=== PATIENT | female | born 2000 | race Caucasian/White ===

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

== ENCOUNTER 2019-01-01 16:16 | Emergency (ER) | payer OTHER ==
[~2019-01-01] VITALS: Ht 149.9 cm; Wt 39.3 kg
[~2019-01-01 16:16] MED LIST changes: -ALBU8.5H3 INH; +ALBU8.5H8 INH; +AZIT250T PO; -AZIT250T94 PO; +CEPH-443 PO
[2019-01-01 16:22] VITALS: BP 131/75; PULSE 76; RESP 18; Ht 149.9 cm; Wt 39.3 kg
[2019-01-01] MEDS ORDERED: DOXY100T20 PO (17:01)
--- NOTE | 2019-01-01 17:07 | ERD ---
ER Documentation Chief Complaint Chief Complaint REDNESS AND SWELLING ON RT LEG X 2 WEEKS HPI 18-year-old female presents complaint of redness and swelling on the left leg for the past 2 weeks. States that she thinks she got a bug bite and then the redness expanded. Denies any current pain or swelling but the states redness is still there. Denies any treatments. Denies any systemic symptoms including achiness chills, fever, chest pain, shortness of breath, cough, hemoptysis, recent travel, hikes. ROS All systems reviewed and are negative except as per history of present illness. Medications Home Meds Active Scripts Doxycycline Hyclate* (Doxycycline Hyclate*) 100 Mg Tablet.dr, 100 MG PO BID for rash for 10 Days, TAB Prov:GABO HELTON 01/01/19 Cephalexin* (Keflex*) 500 Mg Capsule, 500 MG PO BID for 7 Days, CAP Prov:LADARIUS MAYERS PA-C 01/30/17 Dextromethorphan Hb-Promethazine Hcl (Promethazine DM Syrup) 473 Ml Syrup, 5 ML PO Q6H PRN for COUGH, #4 OZ Prov:MIKEY RANGEL MD 09/08/16 Albuterol Sulfate* (Albuterol Sulfate* Neb) 0.083%-3 Ml Neb, 2.5 MG NEB Q4 PRN for SHORTNESS OF BREATH, #30 EA Prov:MIKEY RANGEL MD 09/08/16 Albuterol Sulfate* (Ventolin HFA*) 18 Gm Hfa.aer.ad, 2 PUFF INHALATION Q4H, #1 INHALER Prov:MIKEY RANGEL MD 09/08/16 Azithromycin* (Zithromax*) 250 Mg Tablet, 250 MG PO .ZPACK DIRECTED, #6 TAB TAKE 500 MG (2 TABS) THE FIRST DAY THEN 250 MG (1 TAB) DAYS 2-5 Prov:MIKEY RANGEL MD 09/08/16 Prednisone* (Prednisone*) 20 Mg Tab, 40 MG PO DAILY for 4 Days, TAB Prov:MIKEY RANGEL MD 09/08/16 Albuterol Sulfate* (Proair HFA*) 8.5 Gm Hfa.aer.ad, 2 PUFF INH Q4, #1 INHALER Prov:SAIMA HINES C 12/30/15 Polymyxin B Sulfate-TMP* (Polymyxin B-TMP Eye Drops*) 10 Ml Drops, 1 DROP LEFT EYE QID for 7 Days, EA Prov:CAMILLE ALMANZAR PA-C 12/23/15 Reported Medications Vit-Iron Fumarate-FA ( Vitamin Tablet) 1 Each Tablet, 1 TAB PO DAILY, TAB 12/13/14 Salmeterol Xinaf-Fluticasone* (Advair HFA*) 45/212 Aerosol Inhaler, 2 INH IH BID, INH 12/13/14 Albuterol Sulfate* (Albuterol Sulfate* HFA) 8.5 Gm Hfa.aer.ad, 2 PUFF IH Q4H PRN for WHEEZING AND SOB, EA 12/13/14 Allergies Allergies: Coded Allergies: No Known Allergies (Unverified Allergy, Unknown, 12/23/15) PMhx/Soc History of Surgery: No Anesthesia Reaction: No Hx Neurological Disorder: No Hx Respiratory Disorders: Yes (asthma) Hx Cardiac Disorders: No Hx Psychiatric Problems: No Hx Miscellaneous Medical Probl: No Hx Alcohol Use: No Hx Substance Use: No Hx Tobacco Use: No FmHx Family History: No diabetes, No coronary disease, No other Physical Exam Vitals Vital Signs Date Temp Pulse Resp B/P (MAP) Pulse Ox O2 O2 Flow FiO2 Time Delivery Rate 01/01/19 98.1 76 18 131/75 100 16:22 (93) Physical Exam Const: No acute distress Head: Atraumatic Eyes: Normal Conjunctiva ENT: Normal External Ears, Nose and Mouth. Neck: Full range of motion. No meningismus. Resp: Clear to auscultation bilaterally Cardio: Regular rate and rhythm, no murmurs Abd: Soft, non tender, non distended. Normal bowel sounds Skin: 2 target lesions noted to the right calf. There is no edema or ecchymosis noted. Distal pulses are intact. There is no warmth or tenderness to palpation. Back: No midline or flank tenderness Ext: No cyanosis, or edema Neur: Awake and alert Psych: Normal Mood and Affect Procedures/MDM MDM: Patient will be treated with doxycycline to cover parasitic infection such as Lyme disease which can present with target lesions. Low suspicion for Kawasaki disease, scarlet fever, necrotizing fasciitis, sepsis, gangrene, Bon-Kalia syndrome, toxic epidural necrolysis, abscess, cellulitis, anaphylaxis, allergic reaction. Patient discharged with strict ER precautions. Patient advised to follow up with PMD. All questions answered at discharge. Departure Diagnosis: Primary Impression: Rash Condition: Stable Patient Instructions: Self-Care for Skin Rashes Additional Instructions: FOLLOW UP WITH YOUR PRIMARY CARE PHYSICIAN TOMORROW.Return to this facility if you are not improving as expected. GABO HELTON Jan 01, 2019 17:07
== END 2019-01-01 17:31 | disposition home or self-care (01) ==
LOC: FTE 16:16
DX: L98.9 Disorder of the skin and subcutaneous tissue, unspecified (principal); J45.909 Unspecified asthma, uncomplicated
CPT/HCPCS: 81025; Z7502; 99283

== ENCOUNTER 2019-03-12 21:19 | Emergency (ER) | payer OTHER ==
[~2019-03-12] VITALS: Ht 149.9 cm; Wt 38.3 kg
[~2019-03-12 21:19] MED LIST changes: +BENZ-6 PO; +DOXY100T20 PO
[2019-03-12 21:23] VITALS: Ht 149.9 cm; Wt 38.3 kg
[2019-03-12] MEDS ORDERED: IPRATROPIUM (NEB) 0.5 MG/2.5 ML AMP NEB STA (22:09)
[2019-03-12] MEDS ORDERED: ALBUTEROL 0.083% (NEB) 2.5 MG/3 ML AMP NEB STA (22:09)
[2019-03-12] MEDS ORDERED: predniSONE 20 MG TAB PO ONE (22:30)
--- NOTE | 2019-03-12 23:13 | ERD ---
ER Documentation Chief Complaint Chief Complaint COUGH X4DAYS; HX OF ASTHMA HPI Patient is a 18-year-old female, past medical history of asthma who presents the ER for concerns of dry cough x4 days. Patient states she is been using her inhaler with minimal alleviation of symptoms. Patient also reports shortness of breath. She reports coughing spells. Patient has no fevers or chills. Patient denies any chest pain. Patient denies any nausea, vomiting, bowel pain or diarrhea. Patient denies previous intubation. No recent travel. No sick contacts. ROS All systems reviewed and are negative except as per history of present illness. Medications Home Meds Active Scripts Albuterol Sulfate* (Proair HFA*) 8.5 Gm Hfa.aer.ad, 2 PUFF INH Q6, #1 INHALER Prov:SHAHBAZ GRAHAM PA-C 03/12/19 Benzonatate* (Tessalon Perle*) 100 Mg Capsule, 100 MG PO Q8H PRN for COUGH, #30 CAP Prov:SHAHBAZ GRAHAM PA-C 03/12/19 Prednisone* (Prednisone*) 20 Mg Tab, 40 MG PO DAILY for 4 Days, TAB Prov:SHAHBAZ GRAHAM PA-C 03/12/19 Doxycycline Hyclate* (Doxycycline Hyclate*) 100 Mg Tablet.dr, 100 MG PO BID for rash for 10 Days, TAB Prov:GABO HELTON 01/01/19 Cephalexin* (Keflex*) 500 Mg Capsule, 500 MG PO BID for 7 Days, CAP Prov:LADARIUS MAYERS PA-C 01/30/17 Dextromethorphan Hb-Promethazine Hcl (Promethazine DM Syrup) 473 Ml Syrup, 5 ML PO Q6H PRN for COUGH, #4 OZ Prov:MIKEY RANGEL MD 09/08/16 Albuterol Sulfate* (Albuterol Sulfate* Neb) 0.083%-3 Ml Neb, 2.5 MG NEB Q4 PRN for SHORTNESS OF BREATH, #30 EA Prov:MIKEY RANGEL MD 09/08/16 Albuterol Sulfate* (Ventolin HFA*) 18 Gm Hfa.aer.ad, 2 PUFF INHALATION Q4H, #1 INHALER Prov:MIKEY RANGEL MD 09/08/16 Azithromycin* (Zithromax*) 250 Mg Tablet, 250 MG PO .ZPACK DIRECTED, #6 TAB TAKE 500 MG (2 TABS) THE FIRST DAY THEN 250 MG (1 TAB) DAYS 2-5 Prov:MIKEY RANGEL MD 09/08/16 Prednisone* (Prednisone*) 20 Mg Tab, 40 MG PO DAILY for 4 Days, TAB Prov:MIKEY RANGEL MD 09/08/16 Albuterol Sulfate* (Proair HFA*) 8.5 Gm Hfa.aer.ad, 2 PUFF INH Q4, #1 INHALER Prov:SAIMA HINES 12/30/15 Polymyxin B Sulfate-TMP* (Polymyxin B-TMP Eye Drops*) 10 Ml Drops, 1 DROP LEFT EYE QID for 7 Days, EA Prov:CAMILLE ALMANZAR PA-C 12/23/15 Reported Medications Vit-Iron Fumarate-FA ( Vitamin Tablet) 1 Each Tablet, 1 TAB PO DAILY, TAB 12/13/14 Salmeterol Xinaf-Fluticasone* (Advair HFA*) 45/212 Aerosol Inhaler, 2 INH IH BID, INH 12/13/14 Albuterol Sulfate* (Albuterol Sulfate* HFA) 8.5 Gm Hfa.aer.ad, 2 PUFF IH Q4H PRN for WHEEZING AND SOB, EA 12/13/14 Discontinued Scripts Benzonatate* (Tessalon Perle*) 100 Mg Capsule, 100 MG PO Q8H PRN for COUGH, #30 CAP Prov:SHAHBAZ GRAHAM PA-C 03/12/19 Allergies Allergies: Coded Allergies: No Known Allergies (Unverified Allergy, Unknown, 12/23/15) PMhx/Soc Medical and Surgical Hx: pt denies Surgical Hx History of Surgery: No Anesthesia Reaction: No Hx Neurological Disorder: No Hx Respiratory Disorders: Yes (asthma) Hx Cardiac Disorders: No Hx Psychiatric Problems: No Hx Miscellaneous Medical Probl: No Hx Alcohol Use: No Hx Substance Use: No Hx Tobacco Use: No Smoking Status: Unknown if ever smoked FmHx Family History: No diabetes Physical Exam Vitals Vital Signs Date Temp Pulse Resp B/P (MAP) Pulse Ox O2 O2 Flow FiO2 Time Delivery Rate 03/12/19 91 21 98 21 22:25 03/12/19 98.2 83 19 121/82 100 21:23 (95) Physical Exam GENERAL: Well-developed, well-nourished female. Appears in no acute distress. HEAD: Normocephalic, atraumatic. EYES: Pupils are equally reactive bilaterally. EOMs grossly intact. No conjunctival erythema. ENT: Moist mucous membranes. No uvula deviation. No kissing tonsils. NECK: Supple. No meningismus. Normal range of motion of the neck. LUNG: Tight breath sounds. Faint expiratory wheezing noted. No abdominal retractions, nasal flaring, no tripoding. HEART: Regular rate and rhythm. No murmurs, rubs or gallops. EXTREMITIES: Equal pulses bilaterally. No peripheral clubbing, cyanosis or edema. No unilateral leg swelling. NEUROLOGIC: Alert and oriented. Moving all four extremities without any difficulty. Normal speech. Steady gait. SKIN: Normal color. Warm and dry. No rashes or lesions. Results 24 hrs Current Medications Medications Dose Sig/Marcos Start Time Status Last (Trade) Ordered Route PRN Stop Time Admin Dose Reason Admin Albuterol 5 mg ONCE STAT 03/12/19 DC 03/12/19 (Proventil NEB 22:09 22:25 0.083% (Neb)) 03/12/19 22:10 Ipratropium 0.5 mg ONCE STAT 03/12/19 DC 03/12/19 [place] NEB 22:09 22:25 (Atrovent 03/12/19 22:10 0.02% (Neb)) Prednisone 40 mg ONCE ONCE 03/12/19 DC 03/12/19 (Prednisone) PO 22:30 22:25 03/12/19 22:31 Procedures/MDM MEDICAL DECISION MAKING: This is a 18-year-old female with past medical history of asthma who presents ER for concerns of a shortness of breath and cough x4 days. Vital signs were reviewed. Patient was afebrile. Patient was not hypoxic. ENT exam was normal. Lung exam revealed tight breath sounds. Patient had faint expiratory wheezing. Patient abdominal retractions, nasal flaring, no tripoding to suggest any signs of respiratory distress. Patient was given a breathing treatment as well as prednisone. Upon examination, patient improvement symptoms. Patient will be discharged home with short course of steroids, albuterol inhaler and Tessalon Perles. Patient advised to stay hydrated. Given these findings, the patient's presentation is most consistent with asthma exacerbation secondary to viral URI. Low suspicion for status asthmaticus, pneumonia, meningitis, sinusitis, otitis externa, acute otitis media, strep pharyngitis, epiglottitis or peritonsillar abscess. Patient was nontoxic, [id number] prior to discharge. PRESCRIPTIONS: Tessalon perles, albuterol inhaler, prednisone DISCHARGE: At this time, patient is stable for discharge and outpatient management. Supportive therapies such as OTC throat lozenges, salt water gurgles, popsicles and jello discussed. I have instructed the patient to follow-up with his/her primary care physician in 1-2 days. I have instructed the patient to promptly return to the ER for any new or worsening symptoms including increased pain, swelling, fever, nausea, vomiting, weakness or difficulty breathing. The patient and/or family expressed understanding of and agreement with this plan. All questions were answered. Home care instructions were provided. Disclaimer: Inadvertent spelling and grammatical errors are likely due to EHR/dictation software use and do not reflect on the overall quality of patient care. Also, please note that the electronic time recorded on this note does not necessarily reflect the actual time of the patient encounter. Departure Diagnosis: Primary Impression: Asthma exacerbation Asthma severity: unspecified severity Asthma persistence: unspecified Qualified Codes: J45.901 - Unspecified asthma with (acute) exacerbation Condition: Fair Patient Instructions: Asthma Medications Additional Instructions: Call your primary care doctor TOMORROW for an appointment during the next 1-2 days.See the doctor sooner or return here if your condition worsens before your appointment time. SHAHBAZ GRAHAM PA-C Mar 12, 2019 23:13
[2019-03-12 23:16] VITALS: BP 120/67; PULSE 88; RESP 18
== END 2019-03-12 23:17 | disposition home or self-care (01) ==
LOC: FTE 21:19
DX: J45.901 Unspecified asthma with (acute) exacerbation (principal)
CPT/HCPCS: 94664; J7512; Z7610